=== PATIENT | male | born 2000 | race Caucasian/White ===

== ENCOUNTER 2020-12-17 22:40 | Inpatient (IN) | payer OTHER ==
[~2020-12-17] VITALS: Ht 180.3 cm; Wt 22.2 kg
[2020-12-18 00:22] LABS: HEMATOCRIT 46.4 % (42.0-52.0); MEAN CORPUSCULAR HEMOGLOBIN 30.8 pg (27.0-33.0); MEAN CORPUSCULAR HGB CONC 32.3 g/dl (32.0-36.5); MEAN CORPUSCULAR VOLUME 95.3 fl (80.0-96.0); PLATELET COUNT, AUTOMATED 207 10^3/uL (150-450); RED BLOOD COUNT 4.87 10^6/uL (4.30-6.10); WHITE BLOOD COUNT 8.9 10^3/uL (4.0-10.0)
[2020-12-18 00:41] LABS: AMPHETAMINES LEVEL URINE NEGATIVE (NEGATIVE); BARBITURATES URINE NEGATIVE (NEGATIVE); BENZODIAZEPINES URINE NEGATIVE (NEGATIVE); CANNABINOIDS URINE NEGATIVE (NEGATIVE); COCAINE METABOLITE URINE NEGATIVE (NEGATIVE); METHADONE URINE NEGATIVE (NEGATIVE); OPIATES URINE NEGATIVE (NEGATIVE); PHENCYCLIDINE URINE NEGATIVE (NEGATIVE)
[2020-12-18 00:57] LABS: ACETAMINOPHEN LEVEL < 2.0 UG/ML (10.0-30.0); ALBUMIN 4.7 GM/DL (3.2-5.2); ALT/SGPT 27 U/L (12-78); BILIRUBIN,DIRECT 0.2 MG/DL (0.0-0.2); BILIRUBIN,TOTAL 0.7 MG/DL (0.2-1.0); BLOOD UREA NITROGEN 14 MG/DL (7-18); CALCIUM LEVEL 9.3 MG/DL (8.5-10.1); CARBON DIOXIDE LEVEL 30 MEQ/L (21-32); CHLORIDE LEVEL 106 MEQ/L (98-107); CREATININE FOR GFR 1.35 MG/DL (0.70-1.30); ETHYL ALCOHOL (ETHANOL) < 0.003 % (0.000-0.010); GLUCOSE, FASTING 83 MG/DL (70-100); POTASSIUM SERUM 3.7 MEQ/L (3.5-5.1); SALICYLATE LEVEL < 1.7 MG/DL (5.0-30.0); SODIUM LEVEL 140 MEQ/L (136-145); TOTAL PROTEIN 7.8 GM/DL (6.4-8.2)
[2020-12-18] MEDS ORDERED: HOME MED LIST COMPLETE! XX SCH (03:50)
[2020-12-18 12:02] LABS: RSV AMPLIFICATION NEGATIVE (NEGATIVE)
[2020-12-18] MEDS ORDERED: ACETAMINOPHEN TAB 650MG DOSE (2X325MG) PO PRN (13:10)
[2020-12-18] MEDS ORDERED: OLANZapine ORAL DISINTEGRATING TAB 5MG PO PRN (13:10)
[2020-12-18] MEDS ORDERED: MAALOX 30 ML SUSP *UDC PO PRN (13:10)
[2020-12-18] MEDS ORDERED: MOM 30ML SUSPENSION UDC PO PRN (13:10)
[2020-12-18 14:57] VITALS: BP 117/55
[2020-12-18 18:48] VITALS: BP 145/63
[2020-12-19 06:26] VITALS: BP 145/78
[2020-12-20 06:10] VITALS: BP 122/71
[2020-12-20 18:00] VITALS: BP 138/79
[2020-12-20] MEDS: traZODone 50 MG TAB PO PRN (20:50)
[2020-12-21 07:01] VITALS: BP 102/51
[2020-12-21] MEDS: traZODone 50 MG TAB PO PRN (22:31)
[2020-12-22 06:50] VITALS: BP 99/51
[2020-12-22 17:05] VITALS: BP 121/63
[2020-12-23 06:03] VITALS: BP 113/54
== END 2020-12-23 12:57 | disposition home or self-care (01) | DRG 882 ==
LOC: M ED 22:40 → M ED INP 12-18 13:08 → M PSY 12-18 14:51
PROVIDERS: ADMIT Psychiatry & Neurology Psychiatry; ATTEND Psychiatry & Neurology Psychiatry
DX: F43.25 Adjustment disorder with mixed disturbance of emotions and conduct (principal); R45.850 Homicidal ideations; F84.0 Autistic disorder; Z20.822 Contact with and (suspected) exposure to COVID-19